=== PATIENT | male | born 1980 | race Caucasian/White ===

== ENCOUNTER 2017-05-07 18:50 | Inpatient (IN) | payer BC, OTHER ==
[~2017-05-07] VITALS: Ht 180.3 cm; Wt 156.5 kg
[~2017-05-07 18:50] MED LIST: IBUP-784 PO
[2017-05-07 19:00] VITALS: BP_SYST 125
[2017-05-07] MEDS ORDERED: NACL 0.9% 1,000 ML IV ONE (19:45)
[2017-05-07] MEDS ORDERED: NITROGLYCERIN 0.4 MG TAB.SUBL SL ONE (19:45)
[2017-05-07] MEDS ORDERED: MORPHINE 4 MG/ML INJ. SYRINGE IVP ONE (19:45)
[2017-05-07] MEDS ORDERED: ASPIRIN 325 MG TABLET PO ONE (19:45)
[2017-05-07] MEDS ORDERED: MORPHINE SULFATE 10 MG/ML VIAL ONE (19:54)
[2017-05-07 19:58] LABS: BILIRUBIN,URINE NEGATIVE (NEGATIVE); CLARITY/URINE CLEAR (CLEAR); COLOR,URINE YELLOW (YELLOW); GLUCOSE,URINE 3+ (NEGATIVE); KETONES,URINE TRACE (NEGATIVE); LEUKOCYTE ESTERASE ,URINE NEGATIVE (NEGATIVE); NITRITE, URINE NEGATIVE (NEGATIVE); PH,URINE 5.5 (5.0-8.0); PROTEIN URINE NEGATIVE (NEGATIVE); UROBILINOGEN,URINE 0.2 (0.2-1.0)
[2017-05-07 20:06] LABS: BLOOD, URINE TRACE (NEGATIVE)
[2017-05-07 20:08] LABS: BASOPHILS # (AUTO) 0.2 K/uL (0.0-0.2); BASOPHILS % (AUTO) 2.1 % (0.0-2.0); EOSINOPHILS # (AUTO) 0.3 K/uL (0.0-0.4); HEMATOCRIT 46.9 % (36-54); HEMOGLOBIN 15.9 g/dL (14.0-18.0); LYMPHOCYTES # (AUTO) 3.2 K/uL (1.0-5.5); LYMPHOCYTES % (AUTO) 35.6 % (20.5-51.5); MEAN CORPUSCULAR HEMOGLOBIN 30 pg (27-31); MEAN CORPUSCULAR HGB CONC 34 % (32-36); MEAN CORPUSCULAR VOLUME 88 fL (79.0-98.0); MONOCYTES # (AUTO) 0.5 K/uL (0.0-1.0); NEUTROPHILS # (AUTO) 4.9 K/uL (1.8-7.7); NEUTROPHILS % (AUTO) 53.3 % (40.0-70.0); PLATELET COUNT (AUTO) 206 K/uL (130-430); RED BLOOD CELL COUNT(AUTO) 5.32 MIL/uL (4.2-6.2); RED CELL DISTRIBUTION WIDTH 12.7 % (9.0-15.0); WHITE BLOOD COUNT (AUTO) 9.1 K/uL (4.8-10.8)
[2017-05-07 20:12] LABS: BACTERIA,URINE FEW /HPF (None Seen); RBC,URINE 0-3 /HPF (0-3)
[2017-05-07 20:13] LABS: MUCUS,URINE None Seen /LPF (None Seen)
[2017-05-07 20:14] LABS: BARBITURATE, URINE NEGATIVE (NEG <=200); BENZODIAZEPINE, URINE NEGATIVE (NEG <=150); CANNABINOID, URINE NEGATIVE (NEG <=50); COCAINE, URINE NEGATIVE (NEG <=150); METHAMPHETAMINES SCREEN,URINE NEGATIVE (NEG <=500); OPIATE, URINE NEGATIVE (NEG <=100); PHENCYCLIDINE SCREEN,URINE NEGATIVE (NEG <=25); UR TRICYCLIC ANTIDEPRESSANTS NEGATIVE (NEG <=300); URINE AMPHETAMINE NEGATIVE (NEG <=500); URINE METHADONE NEGATIVE (NEG <=200); URINE OXYCODONE SCREEN NEGATIVE (NEG <=100); URINE PROPOXYPHENE SCREEN NEGATIVE (NEG <=300)
[2017-05-07 20:18] LABS: CALCIUM 9.7 mg/dL (8.4-11.0); CREATININE 0.87 mg/dL (0.55-1.30); POTASSIUM 3.8 mmol/L (3.5-5.1)
[2017-05-07 20:23] LABS: TOTAL BILIRUBIN 1.1 mg/dL (0.0-1.0)
[2017-05-07] MEDS ORDERED: LORazepam 2 MG/ML VIAL (FOR ER USE) IVP ONE (21:45)
[2017-05-07] MEDS ORDERED: KETOROLAC TROMETHAMINE 30 MG VIAL IVP ONE (21:45)
[2017-05-08 00:20] LABS: FREE T4 (FREE THYROXINE) 0.9 ng/dL (0.6-1.6); THYROID STIMULATING HORMONE 5.36 uIu/mL (0.34-4.82)
[2017-05-08 00:53] VITALS: BP_SYST 123
[2017-05-08] MEDS: NACL 0.9% 1,000 ML IV SCH ×2 (01:17→14:39)
[2017-05-08 07:07] LABS: CALCIUM 9.1 mg/dL (8.4-11.0); CREATININE 0.93 mg/dL (0.55-1.30); POTASSIUM 3.9 mmol/L (3.5-5.1)
[2017-05-08 07:09] LABS: BASOPHILS # (AUTO) 0.1 K/uL (0.0-0.2); BASOPHILS % (AUTO) 0.9 % (0.0-2.0); EOSINOPHILS # (AUTO) 0.2 K/uL (0.0-0.4); EOSINOPHILS % (AUTO) 3.4 % (0.0-4.0); HEMATOCRIT 42.9 % (36-54); HEMOGLOBIN 14.4 g/dL (14.0-18.0); LYMPHOCYTES # (AUTO) 2.8 K/uL (1.0-5.5); MEAN CORPUSCULAR HEMOGLOBIN 30 pg (27-31); MEAN CORPUSCULAR HGB CONC 34 % (32-36); MEAN CORPUSCULAR VOLUME 90 fL (79.0-98.0); MONOCYTES # (AUTO) 0.4 K/uL (0.0-1.0); MONOCYTES % (AUTO) 5.4 % (1.7-9.3); NEUTROPHILS # (AUTO) 3.8 K/uL (1.8-7.7); NEUTROPHILS % (AUTO) 51.3 % (40.0-70.0); PLATELET COUNT (AUTO) 195 K/uL (130-430); RED BLOOD CELL COUNT(AUTO) 4.77 MIL/uL (4.2-6.2); RED CELL DISTRIBUTION WIDTH 12.7 % (9.0-15.0); WHITE BLOOD COUNT (AUTO) 7.3 K/uL (4.8-10.8)
[2017-05-08 07:21] LABS: ALBUMIN 3.5 g/dL (3.4-4.8); THYROID STIMULATING HORMONE 3.29 uIu/mL (0.34-4.82); TOTAL BILIRUBIN 1.2 mg/dL (0.0-1.0)
[2017-05-08 07:45] VITALS: BP_SYST 124
[2017-05-08] MEDS: IBUPROFEN 600 MG TABLET PO SCH ×4 (09:18→21:08)
[2017-05-08] MEDS: ASPIRIN 81 MG TAB.CHEW PO SCH (09:18)
[2017-05-08] MEDS ORDERED: ACYCLOVIR 400 MG TABLET PO ONE (11:45)
[2017-05-08] MEDS ORDERED: metFORMIN HCL 500 MG TABLET PO ONE ×2 (11:45)
[2017-05-08] MEDS ORDERED: DEXTROSE 50% JECT 50 ML DISP.SYRIN IVP PRN (11:45)
[2017-05-08 12:00] VITALS: BP_SYST 132
[2017-05-08] MEDS: INSULIN REGULAR, HUMAN 100 UNITS/ML, 10 ML VIAL (novoLIN R) SUBCUT PRN ×2 (12:10→17:24)
[2017-05-08 13:00] VITALS: BP_SYST 124
[2017-05-08] MEDS: ACYCLOVIR 400 MG TABLET PO SCH ×3 (14:38→21:08)
[2017-05-08] MEDS: metFORMIN HCL 500 MG TABLET PO SCH (17:20)
[2017-05-08 20:00] VITALS: BP_SYST 127
[2017-05-08] MEDS ORDERED: SIMVASTATIN 20 MG TABLET PO SCH (21:00)
[2017-05-09 00:12] VITALS: BP_SYST 116
[2017-05-09] MEDS: NACL 0.9% 1,000 ML IV SCH (04:45)
[2017-05-09] MEDS: ACYCLOVIR 400 MG TABLET PO SCH ×4 (06:00→17:15)
[2017-05-09] MEDS: INSULIN REGULAR, HUMAN 100 UNITS/ML, 10 ML VIAL (novoLIN R) SUBCUT PRN ×3 (06:05→17:20)
[2017-05-09 07:56] VITALS: BP_SYST 121
[2017-05-09] MEDS: ASPIRIN 81 MG TAB.CHEW PO SCH (08:59)
[2017-05-09] MEDS: IBUPROFEN 600 MG TABLET PO SCH ×3 (08:59→17:16)
[2017-05-09] MEDS: metFORMIN HCL 500 MG TABLET PO SCH (09:00)
[2017-05-09 11:47] VITALS: BP_SYST 122
[2017-05-09 16:00] VITALS: BP_SYST 127
[2017-05-09] MEDS ORDERED: ASPI-1063 PO (16:05)
[2017-05-09] MEDS ORDERED: LIP20 PO (16:06)
[2017-05-09] MEDS ORDERED: METF-510 PO (16:07)
[2017-05-09] MEDS ORDERED: ACYC400T PO (16:09)
[2017-05-09 17:01] VITALS: BP_SYST 125
[2017-05-09] MEDS ORDERED: metFORMIN HCL 500 MG TABLET PO SCH (18:00)
== END 2017-05-09 18:15 | disposition home or self-care (01) | DRG 313 ==
LOC: SED 18:50 → STU 23:56
PROVIDERS: ADMIT Internal Medicine; ATTEND Internal Medicine
DX: R07.89 Other chest pain (principal); E11.65 Type 2 diabetes mellitus with hyperglycemia; G45.9 Transient cerebral ischemic attack, unspecified; Z68.42 Body mass index [BMI] 45.0-49.9, adult; G47.33 Obstructive sleep apnea (adult) (pediatric); F41.9 Anxiety disorder, unspecified; Z79.4 Long term (current) use of insulin; E66.01 Morbid (severe) obesity due to excess calories; G51.0 Bell's palsy; G89.29 Other chronic pain; M54.9 Dorsalgia, unspecified; F17.210 Nicotine dependence, cigarettes, uncomplicated; G43.909 Migraine, unspecified, not intractable, without status migrainosus
CPT/HCPCS: 36415; 70450-TC; 71045; 80053; 80061; 80307; 81000-TC; 82465-TC; 82962; 83036; 84439; 84443-TC; 84484; 85025; 85379; 85651-TC; 93005; 93306; 93880; 96361; 96374; 96375; 99285; J1815; J1885; J2060; J2270; J7030

== ENCOUNTER 2018-03-03 20:16 | Emergency (ER) | payer BC ==
[~2018-03-03] VITALS: Ht 182.9 cm; Wt 161.9 kg
[~2018-03-03 20:16] MED LIST changes: +ACYC400T PO; +ASPI-1154 PO; -IBUP-784 PO; +LIP20 PO; +METF-510 PO
[2018-03-03 20:27] VITALS: BP_SYST 142
[2018-03-03] MEDS: NACL 0.9% 1,000 ML IV ONE (21:31)
[2018-03-03 21:36] LABS: BASOPHILS # (AUTO) 0.1 K/uL (0.0-0.2); BASOPHILS % (AUTO) 0.7 % (0.0-2.0); EOSINOPHILS # (AUTO) 0.2 K/uL (0.0-0.4); EOSINOPHILS % (AUTO) 2.5 % (0.0-4.0); HEMATOCRIT 46.6 % (36-54); HEMOGLOBIN 15.6 g/dL (14.0-18.0); LYMPHOCYTES # (AUTO) 2.8 K/uL (1.0-5.5); LYMPHOCYTES % (AUTO) 29.6 % (20.5-51.5); MEAN CORPUSCULAR HEMOGLOBIN 30 pg (27-31); MEAN CORPUSCULAR HGB CONC 34 % (32-36); MEAN CORPUSCULAR VOLUME 90 fL (79.0-98.0); MONOCYTES # (AUTO) 0.5 K/uL (0.0-1.0); MONOCYTES % (AUTO) 5.1 % (1.7-9.3); NEUTROPHILS # (AUTO) 5.7 K/uL (1.8-7.7); NEUTROPHILS % (AUTO) 62.1 % (40.0-70.0); RED BLOOD CELL COUNT(AUTO) 5.21 MIL/uL (4.2-6.2); RED CELL DISTRIBUTION WIDTH 12.6 % (9.0-15.0); WHITE BLOOD COUNT (AUTO) 9.3 K/uL (4.8-10.8)
[2018-03-03 21:42] LABS: BILIRUBIN,URINE NEGATIVE (NEGATIVE); BLOOD, URINE NEGATIVE (NEGATIVE); CLARITY/URINE CLEAR (CLEAR); COLOR,URINE YELLOW (YELLOW); GLUCOSE,URINE 3+ (NEGATIVE); KETONES,URINE 1+ (NEGATIVE); LEUKOCYTE ESTERASE ,URINE NEGATIVE (NEGATIVE); NITRITE, URINE NEGATIVE (NEGATIVE); PH,URINE 5.5 (5.0-8.0); PROTEIN URINE NEGATIVE (NEGATIVE); UROBILINOGEN,URINE 0.2 (0.2-1.0)
[2018-03-03 21:56] LABS: CALCIUM 9.8 mg/dL (8.4-11.0); CREATININE 1.07 mg/dL (0.55-1.30); POTASSIUM 3.9 mmol/L (3.5-5.1)
[2018-03-03 21:57] LABS: PLATELET COUNT (AUTO) 207 K/uL (130-430)
[2018-03-03 22:28] VITALS: BP_SYST 135
[2018-03-03 22:54] LABS: BACTERIA,URINE FEW /HPF (None Seen); RBC,URINE NONE SEEN /HPF (0-3); WBC,URINE 0-3 /HPF (0-3)
[2018-03-03 22:55] LABS: MUCUS,URINE 1+ /LPF (None Seen)
== END 2018-03-03 22:28 | disposition home or self-care (01) ==
LOC: SED 20:16
DX: E11.65 Type 2 diabetes mellitus with hyperglycemia (principal); I10 Essential (primary) hypertension; E78.00 Pure hypercholesterolemia, unspecified; Z79.899 Other long term (current) drug therapy
CPT/HCPCS: 36415; 80048; 81000; 82962; 85025; 96360; 99283; J7030

== ENCOUNTER 2019-12-08 17:38 | Emergency (ER) | payer BC, OTHER ==
[~2019-12-08] VITALS: Ht 182.9 cm; Wt 167.8 kg
[~2019-12-08 17:38] MED LIST changes: -ASPI-1154 PO; +ASPI-1457 PO
[2019-12-08 17:40] VITALS: BP_SYST 133
[2019-12-08 18:57] LABS: ANION GAP 7 (5-15); CALCIUM 9.9 mg/dL (8.4-11.0); CHLORIDE 99 mmol/L (98-107); CREATININE 1.05 mg/dL (0.55-1.30); GLUCOSE 267 mg/dL (70-99); POTASSIUM 3.8 mmol/L (3.5-5.1); SODIUM SERUM 136 mmol/L (136-145); UREA NITROGEN, BLOOD 13 mg/dL (8-21)
[2019-12-08 19:09] LABS: ALANINE AMINOTRANSFERASE 63 U/L (12-78); ALBUMIN 3.8 g/dL (3.4-4.8); ASPARTATE AMINOTRANSFERASE 28 U/L (10-37); TOTAL BILIRUBIN 1.2 mg/dL (0.0-1.0)
[2019-12-08 19:17] LABS: GFR AFRICAN AMERICAN 102 mL/min (>90)
[2019-12-08 19:56] VITALS: BP_SYST 136
== END 2019-12-08 19:56 | disposition home or self-care (01) ==
LOC: SED 17:38
DX: R51 Headache (principal); I10 Essential (primary) hypertension; E11.9 Type 2 diabetes mellitus without complications; G47.30 Sleep apnea, unspecified; E78.00 Pure hypercholesterolemia, unspecified; Z79.899 Other long term (current) drug therapy; Z79.82 Long term (current) use of aspirin; Z77.29 Contact with and (suspected) exposure to other hazardous substances
CPT/HCPCS: 36415; 70450-TC; 80053; 82550-TC; 84484; 93005; 99285